=== PATIENT | female | born 1975 | race Asian ===

== ENCOUNTER 2023-10-13 13:55 | Emergency (ER) | payer OTHER ==
[~2023-10-13] VITALS: Ht 160 cm; Wt 63.6 kg
[2023-10-13] MEDS ORDERED: ACET-2247 PO (14:11)
[2023-10-13 14:15] VITALS: BP 146/89; PULSE 80; RESP 16; TEMP 98.3
[2023-10-13 14:22] LABS: COVID AG,FIA SOURCE NASAL SWAB
[2023-10-13 14:38] LABS: RAPID GROUP A STREP NEGATIVE (NEGATIVE)
[2023-10-13 14:46] LABS: SARS-COV2 (COVID) ANTIGEN,FIA Negative (Negative)
[2023-10-13 14:49] LABS: INFLUENZA TYPE A NEGATIVE FOR TYPE A (NEGATIVE); INFLUENZA TYPE B NEGATIVE FOR TYPE B (NEGATIVE)
[2023-10-13] MEDS ORDERED: GUAIFDM PO (14:58)
[2023-10-13] MEDS ORDERED: IBUP-1554 PO (14:58)
[2023-10-13] MEDS ORDERED: ACET-2080 PO (14:58)
== END 2023-10-13 15:19 | disposition home or self-care (01) ==
LOC: EMS 13:57
DX: J06.9 Acute upper respiratory infection, unspecified (principal); J02.8 Acute pharyngitis due to other specified organisms; Z20.822 Contact with and (suspected) exposure to COVID-19
CPT/HCPCS: 87430; 87804; 99283

== ENCOUNTER 2024-09-09 09:19 | Emergency (ER) | payer OTHER ==
[~2024-09-09] VITALS: Ht 152.4 cm; Wt 57.7 kg
[~2024-09-09 09:19] MED LIST: ACET-2080 PO; ACET-2247 PO; GUAIFDM PO; IBUP-1554 PO
[2024-09-09 09:51] LABS: COVID AG,FIA SOURCE NASAL SWAB
[2024-09-09 10:44] LABS: SARS-COV2 (COVID) ANTIGEN,FIA Negative (Negative)
[2024-09-09 10:45] LABS: INFLUENZA TYPE A NEGATIVE FOR TYPE A (NEGATIVE); INFLUENZA TYPE B NEGATIVE FOR TYPE B (NEGATIVE)
[2024-09-09 13:45] VITALS: BP 121/82; PULSE 80; RESP 16; TEMP 98.2; O2SAT 99
[2024-09-09] MEDS ORDERED: AZIT250T9 PO (13:47)
== END 2024-09-09 14:11 | disposition home or self-care (01) ==
LOC: EMS 09:19
DX: J18.9 Pneumonia, unspecified organism (principal); Z20.822 Contact with and (suspected) exposure to COVID-19
CPT/HCPCS: 71046; 87804; 99284